=== PATIENT | male | born 1985 | race Caucasian/White ===

== ENCOUNTER 2018-04-01 23:10 | Emergency (ER) | payer SELFPAY ==
[~2018-04-01] VITALS: Ht 172.7 cm; Wt 90.9 kg
[2018-04-02] MEDS ORDERED: IBUPROFEN 600 MG TABLET PO ONE
[2018-04-02 01:37] VITALS: BP 133/70
== END 2018-04-02 01:39 | disposition home or self-care (01) ==
LOC: EMS 23:11
DX: S40.011A Contusion of right shoulder, initial encounter (principal); S50.02XA Contusion of left elbow, initial encounter; F17.210 Nicotine dependence, cigarettes, uncomplicated; W22.8XXA Striking against or struck by other objects, initial encounter; Y93.89 Activity, other specified; Y92.512 Supermarket, store or market as the place of occurrence of the external cause; Y99.8 Other external cause status
CPT/HCPCS: 99284

== ENCOUNTER 2018-09-24 18:24 | Emergency (ER) | payer SELFPAY ==
[~2018-09-24] VITALS: Ht 172.7 cm; Wt 105.0 kg
[2018-09-24] MEDS ORDERED: IBUP-1506 PO (18:34)
[2018-09-24 21:41] VITALS: BP 137/99
[2018-09-24] MEDS ORDERED: ONDANSETRON HCL 4 MG TABLET PO ONE (22:00)
[2018-09-24] MEDS ORDERED: HYDROCODONE/ACETAMINOPHEN 5-325 MG TABLET PO ONE (22:00)
== END 2018-09-24 23:16 | disposition home or self-care (01) ==
LOC: EMS 18:26
DX: S39.012A Strain of muscle, fascia and tendon of lower back, initial encounter (principal); S49.92XA Unspecified injury of left shoulder and upper arm, initial encounter; M25.562 Pain in left knee; F17.210 Nicotine dependence, cigarettes, uncomplicated; W01.0XXA Fall on same level from slipping, tripping and stumbling without subsequent striking against object, initial encounter; Y93.01 Activity, walking, marching and hiking; Y92.512 Supermarket, store or market as the place of occurrence of the external cause; Y99.8 Other external cause status
CPT/HCPCS: 72100; 73030; 73562; 99283; Q0162